=== PATIENT | female | born 1965 | race Caucasian/White ===

== ENCOUNTER 2020-08-05 07:18 | Emergency (ER) | payer OTHER, SELFPAY ==
[2020-08-05 07:30] VITALS: BP 131/73; PULSE 104; RESP 20; TEMP 37.4; O2SAT 96
[2020-08-05 07:39] LABS: Basophils Percent Auto 0.3 % (0.2-1.2); Hematocrit 41.9 % (37.0-47.0); Hemoglobin 14.3 g/dL (12.0-15.0); Immature Granulocyte Absolute 0.02 K/mm3 (0.00-0.031); Immature Granulocyte Percent A 0.3 % (0-0.5); Immature Platelet Fraction Pct 4.2 % (0.9-11.2); Lymphocytes Absolute Auto 0.84 K/mm3 (0.9-3.2); Mean Corpuscular HGB Conc 34.1 g/dl (32-36); Mean Corpuscular Hemoglobin 30.8 pg (26-34); Mean Corpuscular Volume 90.3 fl (80-100); Mean Platelet Volume 11.5 fl (7.4-10.4); Monocytes Absolute Auto 0.4 K/mm3 (0.1-0.6); Monocytes Percent Auto 6.3 % (2.6-8.5); Neutrophils Absolute Auto 5.2 K/mm3 (1.3-6.7); Neutrophils Percent Auto 80.1 % (45.5-73.1); Platelet Count Result 146 k/mm3 (150-375); Red Blood Count 4.64 M/mm3 (4.2-5.4); White Blood Count 6.5 K/mm3 (4.5-10.0)
--- NOTE | 2020-08-05 07:48 | ED.NAVMDI ---
HPI - Nausea/Vomiting/Diarrhea General Chief complaint: Nausea/Vomiting/Diarrhea Stated complaint: I Need Fluids, I have COVID Time Seen by Provider: 08/05/20 07:37 Source: patient Mode of arrival: ambulatory Limitations: no limitations History of Present Illness HPI Narrative: 54 years old white female presented to the ED with diarrhea, intermittent body aches, intermittent fever And intermittent nausea. Patient had Covid symptoms 10 days ago, positive Covid test 7 days ago. Patient denies any shortness of breath, coughing, chest pain. Patient is able to keep fluid down Related Data Home Medications Medication Instructions Recorded Confirmed alprazolam 0.5 mg tablet 0.5 mg PO BID 09/02/19 cyanocobalamin (vitamin B-12) See Rx Instructions .ROUTE .COMPLEX 09/02/19 1,000 mcg/mL injection kit estradiol 1 mg tablet 1 mg PO DAILY 09/02/19 ferrous sulfate 325 mg (65 mg 325 mg PO TID 09/02/19 iron) tablet paroxetine HCl 40 mg tablet 40 mg PO DAILY 09/02/19 tramadol 50 mg tablet 50 mg PO Q6H PRN 09/02/19 Allergies Allergy/AdvReac Type Severity Reaction Status Date / Time No Known Allergies Allergy Unverified 09/28/16 20:01 Review of Systems Review of Systems: Narrative: CONSTITUTIONAL: Denies fever, chills, or sweats. EYES: Denies visual changes, redness, or discharge. ENT: Denies rhinorrhea, congestion, sore throat, or otalgia. CARDIOVASCULAR: Denies chest pain, palpitations, or edema. RESPIRATORY: Denies cough or dyspnea. GASTROINTESTINAL: Complaining of diarrhea, denies any vomiting or nausea at this time GENITOURINARY: Denies dysuria or hematuria. SKIN: Denies rash or itching. MUSCULOSKELETAL: Denies back pain, joint pain, or myalgia. NEUROLOGIC: Denies headache, numbness, or weakness. PSYCHIATRIC: Denies anxiety or depression. [facility] Past Medical History Medical History (Updated 08/05/20 @ 09:32 by Arun Alicia MD) Dysuria Family History Family History Mother Hypertension Family history of arthritis Father Family history of cardiovascular disease, Onset Age: 64 Family history of kidney disease, Onset Age: 64 Sibling Family history of cardiovascular disease Social History Social History Smoking status: Former smoker Smoking end date: 08/27/13 Alcohol intake: never Exam Narrative: Exam Narrative: General appearance: Well-developed, well-nourished Skin: Normal color Chest and respiratory: Airway patent, no respiratory distress, no accessory muscle use Heart: Regular rate/rhythm Abdomen: Soft, nontender, no organomegaly, quiet bowel sounds Neurologic: Alert and oriented ?3, Course Course Emergency Course: Improving Vital Signs Vital signs: Vital Signs Temperature 37.4 C 08/05/20 07:30 Pulse Rate 104 H 08/05/20 07:30 Respiratory Rate 20 08/05/20 07:30 Blood Pressure 131/73 08/05/20 07:30 Pulse Oximetry 96 08/05/20 07:30 Temperature 37.4 C 08/05/20 07:30 Pulse Rate 95 08/05/20 08:52 Respiratory Rate 15 08/05/20 08:52 Blood Pressure 148/88 H 08/05/20 08:52 Pulse Oximetry 98 08/05/20 08:52 MDM - Nausea/Vomiting/Diarrhea MDM Narrative Medical decision making narrative: Covid infection syndrome. Labs, IV fluid of 2 L of normal saline, IV Zofran ordered. Further plan to follow Lab Data Result diagrams: 08/05/20 07:33 08/05/20 07:33 Labs: Lab Results 08/05/20 08/05/20 08/05/20 Range/Units 07:33 07:33 07:41 WBC 6.5 (4.5-10.0) K/mm3 RBC 4.64 (4.2-5.4) M/mm3 Hgb 14.3 (12.0-15.0) g/dL Hct
[2020-08-05 07:51] LABS: Add Urine Microscopic? YES; Appearance Urine Cloudy (Clear); Bacteria Urine Trace /hpf; Bilirubin Urine Negative (Negative); Color Urine Yellow (Yellow); Glucose Urine UA Negative (Negative); Ketones Urine 1+ mg/dL (Negative); Leukocyte Esterase Ur Trace LEU/UL (Negative); Mucus Urine Few /lpf; Nitrate Urine Negative (Negative); Protein Urine 2+ mg/dL (Negative); RBC Urine 0-2 /hpf (0-2); Specific Grav Ur 1.019 (1.001-1.035); Squamous Epithelial Cell Urine Many /hpf (Few); Urobilinogen Urine Negative mg/dL (<2.0)
[2020-08-05 07:52] LABS: Blood Urine Negative (Negative)
[2020-08-05 07:56] LABS: Alanine Aminotransferase 11 U/L (4-35); Albumin Level 3.9 g/dL (3.5-5.1); Alkaline Phosphatase 79 U/L (38-126); Anion Gap 7 mmol/L (8-16); Aspartate Amino Transferase 39 U/L (14-36); Bilirubin,Total 0.6 mg/dL (0.2-1.3); Blood Urea Nitrogen 9 mg/dL (7-17); Calcium 8.4 mg/dL (8.4-10.2); Carbon Dioxide 26 mmol/L (22-30); Chloride 103 mmol/L (98-107); Estimated CRCL calculation 91 ml/min; Estimated Glomerular Filt Rate > 60; Glucose 133 mg/dL (65-105); Lipase 77 U/L (23-300); Sodium 136 mmol/L (137-145)
[2020-08-05] MEDS: ONDANSETRON INJ 4 MG/2 ML VIAL 8 MG IV PUSH (08:06)
[2020-08-05] MEDS: SODIUM CHLORIDE 0.9% IV 1,000 ML 999 ML IV CONT ×2 (08:06→08:24)
[2020-08-05 08:52] VITALS: BP 148/88; PULSE 95; RESP 15; O2SAT 98
[2020-08-05 09:41] VITALS: BP 127/76; PULSE 100; RESP 14; O2SAT 96
== END 2020-08-05 09:43 | disposition home or self-care (01) ==
PROVIDERS: Emergency Provider Emergency Medicine; PCP Emergency Medicine
DX: U07.1 COVID-19 (principal); R19.7 Diarrhea, unspecified; Z87.891 Personal history of nicotine dependence
CPT/HCPCS: 36415; 80053; 81001; 83690; 85025; 85055; 87086; 96361; 96374; 99284; J2405; J7030

== ENCOUNTER 2021-04-30 16:47 | Emergency (ER) | payer OTHER, SELFPAY ==
--- NOTE | ~2021-04-30 | XR_ITS ---
EXAMINATION: XR foot LT min 3V DATE: 04/30/2021 17:17 INDICATION: Left foot pain. Fall. TECHNIQUE: 4 views of left foot were obtained. COMPARISON: None. FINDINGS: Bone alignment is normal. No fracture. There is mild osteoarthritis of first metatarsophala ngeal joint and some of the interphalangeal joints. There are enthesophytes at the posterior and plan tar aspects of calcaneal tuberosity. IMPRESSION: 1. Mild polyarticular osteoarthritis. Reviewed, dictated and finalized at location A.
[2021-04-30 17:03] VITALS: BP 147/99; PULSE 108; RESP 18; TEMP 36.7; O2SAT 99
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
== END 2021-04-30 17:49 | disposition home or self-care (01) ==
PROVIDERS: Emergency Provider Nurse Practitioner; PCP Emergency Medicine
DX: S99.922A Unspecified injury of left foot, initial encounter (principal); V18.4XXA Pedal cycle driver injured in noncollision transport accident in traffic accident, initial encounter; Y93.55 Activity, bike riding; Z87.891 Personal history of nicotine dependence
CPT/HCPCS: 73630; 99213; G0463

== ENCOUNTER → 2021-09-15 08:49 | Outpatient (CLI) | payer OTHER, SELFPAY ==
[2021-09-15 21:12] LABS: SARS-CoV-2 RNA PCR Positive
== END ==
PROVIDERS: PCP Emergency Medicine; Visit Provider Emergency Medicine
DX: U07.1 COVID-19 (principal)
CPT/HCPCS: C9803; U0003; U0005

== ENCOUNTER 2021-09-17 16:17 | Emergency (ER) | payer OTHER, SELFPAY ==
--- NOTE | 2021-09-17 16:25 | ED.URI ---
HPI - URI/Sore Throat General Chief Complaint: Ear Stated Complaint: Ear Pain,Congestion Time Seen by Provider: 09/17/21 16:25 Source: patient, family, RN notes reviewed and old records reviewed Mode of arrival: ambulatory Limitations: no limitations History of Present Illness HPI Narrative: 55-year-old female presents to the [facility] with ear fullness and pain since Sunday. Patient states that she called her PCM was told to a COVID test, had one on Sunday, was not told to isolate or quarantine. Denies fevers chest pain or abdominal pain. States that she had COVID in 2019 and it does not even feel close to being seen. MD elicited complaint: sinus pain Related Data Home Medications Medication Instructions Recorded Confirmed alprazolam 0.5 mg tablet 0.5 mg PO BID 09/02/19 09/17/21 cyanocobalamin (vitamin B-12) See Rx Instructions .ROUTE .COMPLEX 09/02/19 09/17/21 1,000 mcg/mL injection kit estradiol 1 mg tablet 1 mg PO DAILY 09/02/19 09/17/21 ferrous sulfate 325 mg (65 mg 325 mg PO TID 09/02/19 09/17/21 iron) tablet paroxetine HCl 40 mg tablet 40 mg PO DAILY 09/02/19 09/17/21 Allergies Allergy/AdvReac Type Severity Reaction Status Date / Time No Known Allergies Allergy Unverified 09/17/21 17:10 Review of Systems Review of Systems: All systems reviewed & are unremarkable except as noted in HPI and below Constitutional: Constitutional: Reports no additional constitutional complaints, Denies chills, Denies fever(s) and Denies headache(s) Eyes: Eyes: Reports no additional eye complaints ENT: Reports as per HPI, Denies vertigo, Denies dizziness, Denies headache(s), Denies nasal congestion and Denies sore throat Comments: Sinus congestion and bilateral ear pain and pressure Cardiovascular: Cardiovascular: Reports no additional cardiovascular complaints, Denies chest pain, Denies syncope, Denies rapid heart rate and Denies dyspnea Respiratory: Respiratory: Reports no additional respiratory complaints, Denies cough, Denies dyspnea and Denies wheezing Gastrointestinal: Gastrointestinal: Reports no additional gastrointestinal complaints, Denies abdominal pain, Denies diarrhea, Denies nausea and Denies vomiting Musculoskeletal: Musculoskeletal: Reports no additional musculoskeletal complaints and Denies numbness Integumentary/Breasts: Skin/Breast: Reports system reviewed and no additional complaints, except as docu Neurologic: Reports system reviewed and no additional complaints, except as documented, Denies vertigo, Denies dizziness, Denies syncope, Denies headache(s), Denies focal weakness and Denies numbness Psychiatric: Psychiatric: Reports no additional psychiatric complaints Allergic/Immunologic: Allergic/Immunologic: Reports no additional allergic/immunologic complaints and Denies wheezing PMFSH Past Medical History Medical History (Updated 09/17/21 @ 16:40 by Ilsa Catherine) Dysuria Family History Family History Mother Hypertension Family history of arthritis Father Family history of cardiovascular disease, Onset Age: 64 Family history of kidney disease, Onset Age: 64 Sibling Family history of cardiovascular disease Social History Social History Smoking status: Former smoker Smoking end date: 08/27/13 Alcohol intake: never Comments At the time of my signature, I reviewed and agree with the nursing past medical, surgical, social, and family history. There is no relevant family history pertinent to the patient complaint. Exam Const: General: cooperative, healthy appearing, no acute distress, well developed and alert Nutritional Appearance: well nourished Orientation/consciousness: patient oriented x3 Limitations: no limitations HENMT: Head: normal to inspection Ears: external ears normal, TM's normal bilaterally and EAC's normal General nose exam: Normal external nose present
[2021-09-17 16:27] VITALS: BP 159/107; PULSE 115; RESP 20; TEMP 37.3; O2SAT 99
== END 2021-09-17 16:44 | disposition home or self-care (01) ==
PROVIDERS: Emergency Provider Nurse Practitioner; PCP Emergency Medicine
DX: U07.1 COVID-19 (principal); Z87.891 Personal history of nicotine dependence
CPT/HCPCS: 99213; G0463

== ENCOUNTER 2021-11-29 09:32 | Emergency (ER) | payer OTHER, SELFPAY ==
[2021-11-29 09:41] VITALS: BP 140/97; PULSE 94; RESP 16; TEMP 36.3; O2SAT 98
--- NOTE | 2021-11-29 09:48 | ED.DIZZY ---
HPI - Dizziness General Chief Complaint: Dizziness Stated Complaint: dizziness Time Seen by Provider: 11/29/21 09:48 Source: patient and RN notes reviewed Mode of arrival: ambulatory Limitations: no limitations History of Present Illness HPI Narrative: 56-year-old female presents to the [facility] with dizziness yesterday morning that got better in the afternoon. Woke up this morning with increased dizziness. States that she normally takes Chandrika-D and took a week and a half off however started taking it 2 days ago. Reports it feels like her equilibrium is off. Was able to drive to the [facility]. Denies fevers, headache, blurry vision or change in vision. Denies chest pain or abdominal pain. MD elicited complaint: dizziness Related Data Home Medications Medication Instructions Recorded Confirmed alprazolam 0.5 mg tablet 0.5 mg PO BID 09/02/19 11/29/21 cyanocobalamin (vitamin B-12) See Rx Instructions .ROUTE .COMPLEX 09/02/19 11/29/21 1,000 mcg/mL injection kit estradiol 1 mg tablet 1 mg PO DAILY 09/02/19 11/29/21 ferrous sulfate 325 mg (65 mg 325 mg PO TID 09/02/19 11/29/21 iron) tablet paroxetine HCl 40 mg tablet 40 mg PO DAILY 09/02/19 11/29/21 medroxyprogesterone 2.5 mg PO DAILY 11/29/21 11/29/21 Allergies Allergy/AdvReac Type Severity Reaction Status Date / Time No Known Allergies Allergy Verified 11/29/21 10:00 Review of Systems Review of Systems: All systems reviewed & are unremarkable except as noted in HPI and below Constitutional: Constitutional: Reports no additional constitutional complaints, Denies chills and Denies fever(s) Eyes: Eyes: Reports no additional eye complaints, Denies change in vision and Denies photophobia ENT: Reports system reviewed and no additional complaints, except as documented and Denies sore throat Cardiovascular: Cardiovascular: Reports no additional cardiovascular complaints, Denies chest pain, Denies rapid heart rate and Denies slow heart rate Respiratory: Respiratory: Reports no additional respiratory complaints, Denies chest congestion, Denies cough, Denies dyspnea and Denies wheezing Gastrointestinal: Gastrointestinal: Reports no additional gastrointestinal complaints, Denies abdominal pain, Denies nausea and Denies vomiting Musculoskeletal: Musculoskeletal: Reports no additional musculoskeletal complaints and Denies back pain Integumentary/Breasts: Skin/Breast: Reports system reviewed and no additional complaints, except as docu Neurologic: Reports as per HPI, Denies confusion, Reports dizziness, Denies syncope, Denies headache(s), Denies focal weakness, Denies numbness and Denies weakness Psychiatric: Psychiatric: Reports no additional psychiatric complaints Allergic/Immunologic: Allergic/Immunologic: Reports no additional allergic/immunologic complaints PMFSH Past Medical History Medical History Anxiety and depression Dysuria Family History Family History Mother Hypertension Family history of arthritis Father Family history of cardiovascular disease, Onset Age: 64 Family history of kidney disease, Onset Age: 64 Sibling Family history of cardiovascular disease Social History Social History Smoking status: Former smoker Smoking end date: 08/27/13 Alcohol intake: never Comments At the time of my signature, I reviewed and agree with the nursing past medical, surgical, social, and family history. There is no relevant family history pertinent to the patient complaint. Exam Const: General: healthy appearing, no acute distress and alert Nutritional Appearance: well nourished and obese Orientation/consciousness: patient oriented x3 Limitations: no limitations HENMT: Head: normal to inspection Ears: external ears normal, EAC's normal, mastoids normal, no periauricul
== END 2021-11-29 10:13 | disposition home or self-care (01) ==
PROVIDERS: Emergency Provider Nurse Practitioner; PCP Emergency Medicine
DX: R42 Dizziness and giddiness (principal); Z87.891 Personal history of nicotine dependence; F41.9 Anxiety disorder, unspecified; F32.A Depression, unspecified
CPT/HCPCS: 99213; G0463

== ENCOUNTER 2022-02-03 11:24 | Emergency (ER) | payer OTHER, SELFPAY ==
[2022-02-03 11:32] VITALS: BP 139/67; PULSE 100; RESP 18; TEMP 36.2; O2SAT 99
--- NOTE | 2022-02-03 11:47 | ED.URI ---
HPI - URI/Sore Throat General Chief Complaint: Upper Respiratory Infection Stated Complaint: sore throat/cough Time Seen by Provider: 02/03/22 11:48 Source: patient Mode of arrival: ambulatory Limitations: no limitations History of Present Illness HPI Narrative: 56-year-old female presents with complaint of sinus pain, pressure, nasal congestion, postnasal drainage for 10 days. Reports over the last 4 to 5 days she has developed a cough, chest congestion. Has a history of sinus infections and bronchitis. Started using inhaler yesterday. Is taking daily allergy medication and using DayQuil NyQuil cold and sinus. She denies shortness of breath and chest pain. No fever chills. Reports blowing green drainage from nose. No concern for COVID, no COVID contacts. All systems reviewed and negative except as noted above. Related Data Home Medications Medication Instructions Recorded Confirmed alprazolam 0.5 mg tablet (Xanax) 0.5 mg PO BID 09/02/19 02/03/22 cyanocobalamin (vitamin B-12) See Rx Instructions .Route .COMPLEX 09/02/19 02/03/22 1,000 mcg/mL injection kit estradiol 1 mg tablet 1 mg PO DAILY 09/02/19 02/03/22 ferrous sulfate 325 mg (65 mg 325 mg PO TID 09/02/19 02/03/22 iron) tablet (Iron (ferrous sulfate)) paroxetine HCl 40 mg tablet (Paxil) 40 mg PO DAILY 09/02/19 02/03/22 medroxyprogesterone 2.5 mg tablet 2.5 mg PO DAILY 11/29/21 02/03/22 Allergies Allergy/AdvReac Type Severity Reaction Status Date / Time No Known Allergies Allergy Verified 02/03/22 11:38 Review of Systems Review of Systems: CONSTITUTIONAL: Denies fever, chills, or sweats. EYES: Denies visual changes, redness, or discharge. ENT: Reports rhinorrhea, congestion, sore throat, and otalgia. CARDIOVASCULAR: Denies chest pain, palpitations, or edema. RESPIRATORY: Reports cough and chest congestion. Denies dyspnea. GASTROINTESTINAL: Denies abdominal pain, nausea, vomiting, or diarrhea. GENITOURINARY: Denies dysuria or hematuria. SKIN: Denies rash or itching. MUSCULOSKELETAL: Denies back pain, joint pain, or myalgia. NEUROLOGIC: Denies headache, numbness, or weakness. PSYCHIATRIC: Denies anxiety or depression. All other systems reviewed are negative, except as documented in HPI. [facility] Past Medical History Medical History Anxiety and depression Dysuria Family History Family History Mother Hypertension Family history of arthritis Father Family history of cardiovascular disease, Onset Age: 64 Family history of kidney disease, Onset Age: 64 Sibling Family history of cardiovascular disease Social History Social History Smoking status: Former smoker Smoking end date: 08/27/13 Alcohol intake: never Comments At time of signature, agree with nursing past medical, surgical, social and family history. There is no relevant family history pertinent to the presenting complaint. Exam Narrative: GENERAL: This is a well-nourished, well-developed patient, in no apparent distress. HEAD: normocephalic, atraumatic. EYES: PERRL. Sclera clear/white. Vision is grossly intact. EARS: External ears normal, auditory canals clear and without drainage, fluid to bilateral TMs. No erythema, no perforation. NOSE: External nose normal with moderate congestion, maxillary sinus tenderness bilaterally. THROAT: Mucous membranes moist, clear postnasal drainage, no erythema to posterior pharynx. NECK: Neck supple, non-tender without lymphadenopathy, masses or thyromegaly. CARDIOVASCULAR: Regular rate and rhythm without murmurs, gallops, or rubs. RESPIRATORY: Clear to auscultation. Breath sounds equal bilaterally. No wheezes, rales, or rhonchi. SKIN: warm, Dry, intact with no suspicious lesions or rash, good texture and turgor. NEURO: awake, alert, and oriented to person, place and
== END 2022-02-03 12:09 | disposition home or self-care (01) ==
PROVIDERS: Emergency Provider Nurse Practitioner Family; PCP Emergency Medicine
DX: J01.90 Acute sinusitis, unspecified (principal); R05.9 Cough, unspecified; F41.9 Anxiety disorder, unspecified; F32.A Depression, unspecified
CPT/HCPCS: 99213; G0463

== ENCOUNTER 2022-10-30 13:15 | Emergency (ER) | payer SELFPAY ==
--- NOTE | ~2022-10-30 | XR_ITS ---
XR chest 2V DATE: 10/30/2022 14:38 INDICATION: Shortness of breath TECHNIQUE: PA and lateral views COMPARISON: None FINDINGS: Normal heart size. No hilar or mediastinal enlargement. No pulmonary infiltrate or consolid ation, pleural effusion or pulmonary vascular congestion or pneumothorax. Degenerative spurring of th e thoracic spine. IMPRESSION: No active cardiopulmonary disease Reviewed, dictated and finalized at location B. [facility]
[2022-10-30 13:28] VITALS: BP 150/82; PULSE 94; RESP 12; TEMP 37; O2SAT 96
--- NOTE | 2022-10-30 14:14 | ED.URI ---
HPI - URI/Sore Throat General Chief Complaint: Upper Respiratory Infection Stated Complaint: SOB/Chest/Cough Time Seen by Provider: 10/30/22 14:14 Source: patient, RN notes reviewed and old records reviewed Mode of arrival: ambulatory Limitations: no limitations History of Present Illness HPI Narrative: 57-year-old female presents to the [facility] with complaints of productive cough that is yellow. Chest burning at times. Denies fevers. Has a history of bronchitis, former smoker Onset (ago): day(s) (3) Related Data Home Medications Medication Instructions Recorded Confirmed alprazolam 0.5 mg tablet (Xanax) 0.5 mg PO BID 09/02/19 02/03/22 cyanocobalamin (vitamin B-12) See Rx Instructions .Route .COMPLEX 09/02/19 02/03/22 1,000 mcg/mL injection kit ferrous sulfate 325 mg (65 mg 325 mg PO TID 09/02/19 02/03/22 iron) tablet (Iron (ferrous sulfate)) paroxetine HCl 40 mg tablet (Paxil) 40 mg PO DAILY 09/02/19 02/03/22 medroxyprogesterone 2.5 mg tablet 2.5 mg PO DAILY 11/29/21 02/03/22 Daily Multivitamin 10/30/22 ascorbate calcium (vitamin C) 10/30/22 estradiol 10/30/22 Allergies Allergy/AdvReac Type Severity Reaction Status Date / Time No Known Allergies Allergy Verified 10/30/22 13:20 Review of Systems Review of Systems: All systems reviewed & are unremarkable except as noted in HPI and below Constitutional: Constitutional: Reports no additional constitutional complaints Eyes: Eyes: Reports no additional eye complaints ENT: Reports system reviewed and no additional complaints, except as documented Cardiovascular: Cardiovascular: Reports no additional cardiovascular complaints, Denies chest pain and Denies dyspnea Respiratory: Respiratory: Reports as per HPI, Reports chest congestion, Reports cough and Denies dyspnea Gastrointestinal: Gastrointestinal: Reports no additional gastrointestinal complaints, Denies abdominal pain, Denies nausea and Denies vomiting Musculoskeletal: Musculoskeletal: Reports no additional musculoskeletal complaints Integumentary/Breasts: Skin/Breast: Reports system reviewed and no additional complaints, except as docu Neurologic: Reports system reviewed and no additional complaints, except as documented Psychiatric: Psychiatric: Reports no additional psychiatric complaints Allergic/Immunologic: Allergic/Immunologic: Reports no additional allergic/immunologic complaints PMFSH Past Medical History Medical History Anxiety and depression Dysuria Family History Family History Mother Hypertension Family history of arthritis Father Family history of cardiovascular disease, Onset Age: 64 Family history of kidney disease, Onset Age: 64 Sibling Family history of cardiovascular disease Social History Social History Smoking status: Former smoker Smoking end date: 08/27/13 Alcohol intake: never Comments At the time of my signature, I reviewed and agree with the nursing past medical, surgical, social, and family history. There is no relevant family history pertinent to the patient complaint. Exam Const: General: cooperative, healthy appearing, comfortable, no acute distress, well developed, alert and well nourished Nutritional Appearance: well nourished and obese Orientation/consciousness: patient oriented x3 Limitations: no limitations HENMT: Head: normal to inspection Ears: hearing grossly normal bilaterally and external ears normal Face/Nose/Sinus: Normal external nose present, Normal nares present, Normal nasal mucous membranes and turbinates present and normal facial exam Face and sinus: normal facial exam Mouth: Yes Normal oral and palatal mucosa present, Yes lip normal and Yes moist mucous membranes Throat: posterior oropharynx normal and uvula midline Eyes: General: appear
== END 2022-10-30 15:17 | disposition home or self-care (01) ==
PROVIDERS: Emergency Provider Nurse Practitioner; PCP Emergency Medicine
DX: J40 Bronchitis, not specified as acute or chronic (principal); Z87.891 Personal history of nicotine dependence; F41.9 Anxiety disorder, unspecified; F32.A Depression, unspecified
CPT/HCPCS: 71046; 99213; G0463

== ENCOUNTER 2023-05-06 14:26 | Emergency (ER) | payer OTHER, SELFPAY ==
--- NOTE | ~2023-05-06 | XR_ITS ---
EXAMINATION: XR chest 2V Exam Date/Time: 05/06/2023 16:20 CDT HISTORY: cough short of breath x 8 days Comparison: 10/30/2022. RESULT: Lines, tubes, and devices: Surgical clips over the midline upper abdomen. Lungs and pleura: Clear. Cardiomediastinal silhouette: Stable. Other: No acute osseous or upper abdominal finding. IMPRESSION: No acute cardiopulmonary process. Reviewed, dictated and finalized at location K.
[2023-05-06 15:27] VITALS: BP 149/88; PULSE 91; RESP 16; TEMP 37.3; O2SAT 99
--- NOTE | 2023-05-06 16:14 | ED.URI ---
HPI - URI/Sore Throat General Chief Complaint: Upper Respiratory Infection Stated Complaint: Cough and Short of Breath,Ear Irritation,Lethargic Time Seen by Provider: 05/06/23 16:05 Source: patient and RN notes reviewed Mode of arrival: ambulatory Limitations: no limitations History of Present Illness HPI Narrative: Patient presents today complaining of an 8 day history of cough, headache, fatigue, shortness of breath. Denies fever. She has been taking Mucinex and using her albuterol inhaler without much relief. History of bronchitis and pneumonia. Denies history of asthma or COPD. During her last visit to [facility] she was given a course of steroids, which she did not take or finish. She has restarted these during this illness over the last few days without relief. Related Data Home Medications Medication Instructions Recorded Confirmed alprazolam 0.5 mg tablet (Xanax) 0.5 mg PO BID 09/02/19 05/06/23 paroxetine HCl 40 mg tablet (Paxil) 40 mg PO DAILY 09/02/19 05/06/23 medroxyprogesterone 2.5 mg tablet 2.5 mg PO DAILY 11/29/21 05/06/23 estradiol 1 mg tablet 1 mg PO DAILY 05/06/23 05/06/23 Allergies Allergy/AdvReac Type Severity Reaction Status Date / Time No Known Allergies Allergy Verified 05/06/23 15:41 Review of Systems Review of Systems: CONSTITUTIONAL: Denies body aches, fever, chills, or sweats.+ fatigue EYES: Denies visual changes, redness, or discharge. ENT: Denies rhinorrhea, congestion, sore throat, or otalgia. CARDIOVASCULAR: Denies chest pain, palpitations, or edema. RESPIRATORY: Cough, shortness of breath GASTROINTESTINAL: Denies abdominal pain, nausea, vomiting. + diarrhea GENITOURINARY: Denies dysuria or hematuria. SKIN: Denies rash, itching, or wounds. MUSCULOSKELETAL: Denies back pain, joint pain, or myalgia. NEUROLOGIC: Denies numbness, tingling, or weakness.+ headache PSYCH: Denies depression or anxiety. [facility] Past Medical History Medical History Anxiety and depression Dysuria Family History Family History Mother Hypertension Family history of arthritis Father Family history of cardiovascular disease, Onset Age: 64 Family history of kidney disease, Onset Age: 64 Sibling Family history of cardiovascular disease Social History Social History Smoking status: Former smoker Smoking end date: 08/27/13 Alcohol intake: never Comments At time of signature, I have reviewed and agree with nursing past medical, surgical, social and family history unless otherwise noted. Please see nursing chart for further information. There is no relevant family history pertinent to the presenting complaint Exam Narrative: GENERAL: Well-appearing, well-nourished, and in no acute distress. HEAD: Normocephalic, atraumatic. EYES: EOMI. No redness or drainage. Conjunctivae normal. ENT: Mucous membranes pink and moist. Nares clear. No rhinorrhea. TMs normal bilaterally. Throat normal. Uvula midline. NECK: Normal AROM. Supple. No lymphadenopathy. CHEST: No respiratory distress. Slight coarseness at the end of the expiration in all for lung zones. HEART: Regular rate and rhythm. No murmur appreciated. Normal peripheral pulses. EXTREMITIES: Normal range of motion. No edema. SKIN: Warm, dry, no rash. Capillary refill normal. Normal skin turgor. NEURO: No focal deficits. Alert and oriented x3. Gait steady. PSYCH: Normal affect. No signs of depression or anxiety. Course Course Level of Care: Express Care Visit Vital Signs Vital signs: Vital Signs Temperature 99.2 F 05/06/23 15:27 Pulse Rate 91 05/06/23 15:27 Respiratory Rate 16 05/06/23 15:27 Blood Pressure 149/88 H 05/06/23 15:27 Pulse Oximetry 99 05/06/23 15:27 Oxygen Delivery Room Air 05/06/23 15:27 Te
== END 2023-05-06 17:18 | disposition home or self-care (01) ==
PROVIDERS: Emergency Provider Nurse Practitioner; PCP Emergency Medicine
DX: J40 Bronchitis, not specified as acute or chronic (principal); F41.9 Anxiety disorder, unspecified; F32.A Depression, unspecified; Z79.899 Other long term (current) drug therapy; Z87.891 Personal history of nicotine dependence
CPT/HCPCS: 71046; 99213; G0463

== ENCOUNTER 2023-08-05 12:23 | Emergency (ER) | payer OTHER, SELFPAY ==
[2023-08-05 12:32] VITALS: BP 140/97; PULSE 103; RESP 16; TEMP 36.6; O2SAT 100
[2023-08-05 12:34] VITALS: BP 140/97; PULSE 103; RESP 16; TEMP 36.6; O2SAT 100
--- NOTE | 2023-08-05 13:49 | ED.GENADULT ---
HPI - General Adult General Chief complaint: Upper Respiratory Infection Stated complaint: Cough Source: patient Mode of arrival: ambulatory Limitations: no limitations History of Present Illness HPI narrative: Patient presents for evaluation of respiratory symptoms for last 8 days. She has experience a cough and some mild shortness of breath. No fever, nausea, vomiting, diarrhea, sore throat or otalgia. She has had similar symptoms in the past with bronchitis. Several individuals with whom she lives have had similar symptoms. She states in the past she had insomnia with certain steroids but more recently took another steroid that seemed to help but without significant side effects. She has used flonase and albuterol for her symptoms. Related Data Home Medications Medication Instructions Recorded Confirmed alprazolam 0.5 mg tablet (Xanax) 0.5 mg PO BID 09/02/19 08/05/23 paroxetine HCl 40 mg tablet (Paxil) 40 mg PO DAILY 09/02/19 08/05/23 medroxyprogesterone 2.5 mg tablet 2.5 mg PO DAILY 11/29/21 08/05/23 estradiol 1 mg tablet 1 mg PO DAILY 05/06/23 08/05/23 Allergies Allergy/AdvReac Type Severity Reaction Status Date / Time No Known Allergies Allergy Verified 08/05/23 12:33 Review of Systems Review of Systems: CONSTITUTIONAL: Denies fever, chills, or sweats. EYES: Denies visual changes, redness, or discharge. ENT: Denies rhinorrhea, congestion, sore throat, or otalgia. CARDIOVASCULAR: Denies chest pain, palpitations, or edema. RESPIRATORY: Reports cough and SOB GASTROINTESTINAL: Denies abdominal pain, nausea, vomiting, or diarrhea. GENITOURINARY: Denies dysuria or hematuria. SKIN: Denies rash or itching. MUSCULOSKELETAL: Denies back pain, joint pain, or myalgia. NEUROLOGIC: Denies headache, numbness, dizziness, or weakness. PSYCHIATRIC: Denies anxiety or depression. [facility] Past Medical History Medical History (Updated 08/05/23 @ 13:53 by Abraham Loving, INGE, FELIPE) Anxiety and depression Anxiety and depression Dysuria Surgical History Surgical History No pertinent past surgical history Family History Family History Mother Hypertension Family history of arthritis Father Family history of cardiovascular disease, Onset Age: 64 Family history of kidney disease, Onset Age: 64 Sibling Family history of cardiovascular disease Social History Social History Smoking status: Former smoker Smoking end date: 08/27/13 Alcohol intake: never Lack of Transportation: No Lack of Food: Never True Exam Narrative: GENERAL: Well-appearing, well-nourished, and in no acute distress. HEAD: Normocephalic, atraumatic. EYES: PERRLA and EOMI. ENT: Nares clear, no rhinorrhea or epistaxis. Mucous membranes moist. Oropharynx without tonsillar hypertrophy exudate or other lesions. Bilateral TMs pearly randolph nonbulging NECK: Supple. No adenopathy or masses. No carotid bruits or JVD CHEST: Clear to auscultation. No respiratory distress. No wheezes rales or rhonchi HEART: Regular rate and rhythm. No murmur heard. Normal peripheral pulses. ABDOMEN: Soft, nontender, nondistended, normal active bowel sounds. EXTREMITIES: Normal range of motion. No edema. SKIN: Warm, dry, no rash. NEURO: No focal deficits. Alert and oriented x3. PSYCH: Normal mood and affect. Course Course Emergency Course: This is a 57-year-old female who presented for evaluation of respiratory symptoms that are consistent with those experienced in the past with bronchitis. She declined COVID/flu testing and CXR. She does not adventitious lung sounds. It appears most recently she took dexamethasone with improvement in her symptoms thereafter. Will discharge with a prescription for that. Increase hydration. OTC agents for symptom rubén
== END 2023-08-05 13:55 | disposition home or self-care (01) ==
PROVIDERS: Emergency Provider Nurse Practitioner; PCP Emergency Medicine
DX: J40 Bronchitis, not specified as acute or chronic (principal); Z87.891 Personal history of nicotine dependence; F41.9 Anxiety disorder, unspecified; F32.A Depression, unspecified
CPT/HCPCS: 99213; G0463

== ENCOUNTER 2023-09-16 12:25 | Emergency (ER) | payer OTHER, SELFPAY ==
--- NOTE | 2023-09-16 13:09 | ED.GENADULT ---
HPI - General Adult General Chief complaint: Upper Respiratory Infection Stated complaint: Sinus Source: patient Mode of arrival: ambulatory Limitations: no limitations History of Present Illness HPI narrative: Patient presents for evaluation of sick symptoms for last 2 weeks. She reports sinus congestion, green discharge from the nares, productive cough of brown sputum, throat irritation from coughing. No recent sick contacts to her knowledge. She has been taking theraflu for her symptoms. She had improvement in her symptoms with recurrence thereafter. She has used steroids in the past with successful reduction in her symptoms. She does not smoke. Related Data Home Medications Medication Instructions Recorded Confirmed alprazolam 0.5 mg tablet (Xanax) 0.5 mg PO BID 09/02/19 09/16/23 paroxetine HCl 40 mg tablet (Paxil) 40 mg PO DAILY 09/02/19 09/16/23 medroxyprogesterone 2.5 mg tablet 2.5 mg PO DAILY 11/29/21 09/16/23 estradiol 1 mg tablet 1 mg PO DAILY 05/06/23 09/16/23 Allergies Allergy/AdvReac Type Severity Reaction Status Date / Time No Known Allergies Allergy Verified 09/16/23 13:11 Review of Systems Review of Systems: CONSTITUTIONAL: Denies fever, chills, or sweats. EYES: Denies visual changes, redness, or discharge. ENT: Reports sinus congestion thick green drainage from the nares. Reports sore throat. CARDIOVASCULAR: Denies chest pain, palpitations, or edema. RESPIRATORY: Reports productive cough of brown sputum. GASTROINTESTINAL: Reports recent loose stools, none in the past few days. Denies abdominal pain, nausea, or vomiting. GENITOURINARY: Denies dysuria or hematuria. SKIN: Denies rash or itching. MUSCULOSKELETAL: Denies back pain, joint pain, or myalgia. NEUROLOGIC: Denies headache, numbness, dizziness, or weakness. PSYCHIATRIC: Denies anxiety or depression. [facility] Past Medical History Medical History Anxiety and depression Anxiety and depression Asthma exacerbation Dysuria Surgical History Surgical History No pertinent past surgical history Family History Family History Mother Hypertension Family history of arthritis Father Family history of cardiovascular disease, Onset Age: 64 Family history of kidney disease, Onset Age: 64 Sibling Family history of cardiovascular disease Social History Social History Smoking end date: 08/27/13 Alcohol intake: never Lack of Transportation: No Lack of Food: Never True Gender identity (if verbalized by the patient): Female Spiritual care concerns: No Exam Narrative: GENERAL: Well-appearing, well-nourished, and in no acute distress. HEAD: Normocephalic, atraumatic. EYES: PERRLA and EOMI. ENT: Nares clear, no rhinorrhea or epistaxis. Mucous membranes moist. Bilateral maxillary sinus tenderness. Oropharynx without tonsillar hypertrophy exudate or other lesions. Bilateral TMs slightly erythematous. NECK: Supple. No adenopathy or masses. No carotid bruits or JVD CHEST: Clear to auscultation. No respiratory distress. No wheezes rales or rhonchi HEART: Regular rate and rhythm. No murmur heard. Normal peripheral pulses. ABDOMEN: Soft, nontender, nondistended, normal active bowel sounds. EXTREMITIES: Normal range of motion. No edema. SKIN: Warm, dry, no rash. NEURO: No focal deficits. Alert and oriented x3. PSYCH: Normal mood and affect. Course Course Emergency Course: This is a 57-year-old female who presented for evaluation of sick symptoms. She declined flu and COVID testing. She also declined CXR. I think this is reasonable as she has no adventitious lung sounds. Historically she has responded well to dexamethasone so will provide her with a prescription
[2023-09-16 13:39] VITALS: BP 156/102; PULSE 88; RESP 20; TEMP 36.9; O2SAT 99
[2023-09-16 14:38] VITALS: BP 152/94
== END 2023-09-16 14:38 | disposition home or self-care (01) ==
PROVIDERS: Emergency Provider Nurse Practitioner; PCP Emergency Medicine
DX: J01.00 Acute maxillary sinusitis, unspecified (principal); Z87.891 Personal history of nicotine dependence; J45.909 Unspecified asthma, uncomplicated; F41.9 Anxiety disorder, unspecified; F32.A Depression, unspecified
CPT/HCPCS: 99213; G0463

== ENCOUNTER 2025-01-30 13:02 | Emergency (ER) | payer OTHER, SELFPAY ==
--- NOTE | ~2025-01-30 | XR_ITS ---
EXAMINATION: XR chest 2V 01/30/2025 14:13 INDICATION: Cough and shortness of breath PROCEDURE: 2 view chest COMPARISON: 05/06/2023 FINDINGS: The lungs are clear. The cardiomediastinal silhouette is within normal limits. There are no pleural effusions. There is no pneumothorax suspected. IMPRESSION: 1: NO ACUTE CARDIOPULMONARY DISEASE. Reviewed, dictated and finalized at location A.
[2025-01-30 13:10] VITALS: BP 153/77; PULSE 98; RESP 16; TEMP 36.9; O2SAT 97
--- NOTE | 2025-01-30 13:58 | ED.URI ---
HPI - URI/Sore Throat General Chief Complaint: Upper Respiratory Infection Stated Complaint: Sinus Time Seen by Provider: 01/30/25 13:58 Source: patient, RN notes reviewed and old records reviewed Mode of arrival: ambulatory Limitations: no limitations History of Present Illness HPI Narrative: 59-year-old female presents to the [facility] with over 1 week of cough, started as a sore throat, sinus congestion, rhinorrhea. Denies chest pain, shortness of breath. Denies fevers. Did take some cold medicine the yesterday. Has not used her inhaler. Onset (ago): week(s) (1+) Treatments prior to arrival: cold medicine Related Data Home Medications ?Medication ?Instructions ?Recorded ?Confirmed ?Last Taken ?Type alprazolam 0.5 mg tablet (Xanax) 0.5 mg PO BID 09/02/19 11/03/24 Unknown History paroxetine HCl 40 mg tablet (Paxil) 40 mg PO DAILY 09/02/19 11/03/24 Unknown History estradiol 1 mg tablet 1 mg PO DAILY 05/06/23 11/03/24 Unknown History Allergies Allergy/AdvReac Type Severity Reaction Status Date / Time No Known Allergies Allergy Verified 01/30/25 13:24 Review of Systems Review of Systems: All systems reviewed & are unremarkable except as noted in HPI and below Constitutional: Constitutional: Reports no additional constitutional complaints ENT: Reports as per HPI, Reports nasal congestion, Reports sinus pain and Reports sore throat Cardiovascular: Cardiovascular: Reports no additional cardiovascular complaints, Denies chest pain and Denies dyspnea Respiratory: Respiratory: Reports as per HPI, Denies chest congestion, Reports cough and Denies dyspnea Musculoskeletal: Musculoskeletal: Reports no additional musculoskeletal complaints Integumentary/Breasts: Skin/Breast: Reports system reviewed and no additional complaints, except as docu PMFSH Past Medical History Medical History Pain in both knees History of anemia COVID-19 virus infection Urinary frequency Symptoms of urinary tract infection S/p nephrectomy Pyelonephritis Pain of right heel Nausea Mixed hyperlipidemia Elevated lipids Dysthymic disorder Colonoscopy refused Carpal tunnel syndrome of right wrist B12 deficiency Anxiety Acute pain of left knee Acute cystitis without hematuria History of endometrial biopsy (06/10/17) GERD (gastroesophageal reflux disease) Endometriosis Kidney donor donated to father Asthma exacerbation Anxiety and depression Anxiety and depression Dysuria Surgical History Surgical History History of colposcopy (11/13/19) History of carpal tunnel release (04/30/18) History of colposcopy (~2017) History of colposcopy (~2018) Benign History of endometrial ablation (09/04/14) History of laparoscopy (~1990) Laparoscopy abdomen diagnostic / Endometriosis H/O tubal ligation (~1988) No pertinent past surgical history Family History Family History Mother Hypertension Family history of arthritis Father Family history of cardiovascular disease, Onset Age: 64 Family history of kidney disease, Onset Age: 64 Sibling Family history of cardiovascular disease Social History Social History Smoking status: Never smoker Smoking end date: 08/27/13 Alcohol intake: never Substance use: never Substance use type: does not use Do You Feel Safe in your Home?: Yes Lack of Transportation: No Lack of Food: Never True Current Housing: Decline to Answer Concerned About Future Housing: Decline to Answer Difficulty Paying Gas/Electric Bills: Decline to Answer Difficulty Paying for Meds: Decline to Answer Currently Unemployed: Decline to Answer Education: Decline to Answer Difficulty w/ Childcare or Family Care: Decline to Answer Living arrangements: other Additional living arrangements comments: estranged Occupation/Education: occupation Additional occupation/education comments: [employer] Gender identity (if verbalized by the patient): Female Sexual Orientation (if Verbalized by the Patient): Straight or Heterosexual Spiritual care concerns: No Comments At the time of my signature, I reviewed and agree with the nursing past medical, surgical, social, and family history. There is no relevant family history pertinent to the patient complaint. Exam Const: General: cooperative, healthy appearing, comfortable, no acute distress, well developed, alert and well nourished Nutritional Appearance: well nourished Orientation/consciousness: patient oriented x3 Limitations: no limitations HENMT: Head: normal to inspection Ears: hearing grossly normal bilaterally, external ears normal, TM's normal bilaterally, EAC's normal, mastoids normal and no periauricular adenopathy Face/Nose/Sinus: Normal external nose present, Nasal discharge present clear bilateral and sinus tenderness Mouth: Yes Normal oral and palatal mucosa present, Yes lip normal, Yes tongue normal and Yes moist mucous membranes Throat: posterior oropharynx normal, uvula midline, postnasal drainage and no uvular edema Eyes: General: appearance normal, both eyes and all related structures Alignment and Position: alignment normal Neck: Neck: normal visual inspection, full ROM, no lymphadenopathy and no meningeal signs Chest: Chest palpation & inspection: normal inspection of the chest Resp: Effort & Inspection: normal respiratory effort and able to speak in complete sentences Auscultation: no crackles, no rales, no rhonchi and wheezes expiratory wheezes and throughout Cardio: Rate: regular rate Skin: General skin exam: normal color and no rashes or lesions noted Neuro: General: patient oriented x3, gait normal, moves all extremities and no meningeal signs Cognition (Neuro): normal cognition Speech: normal speech Gait exam (Neuro): Normal gait present Extrem: General: normal to inspection, full ROM, capillary refill normal and normal gait Psych: Appearance: grossly normal and well kempt Mental Status: mental status grossly normal Speech and movement: Normal speech and movement present and Clear speech present Affect: normal affect Attitude: cooperative Course Course Level of Care: Express Care Visit Vital Signs Vital signs: Vital Signs Temperature 98.5 F 01/30/25 13:10 Pulse Rate 98 01/30/25 13:10 Respiratory Rate 16 01/30/25 13:10 Blood Pressure 153/77 H 01/30/25 13:10 Pulse Oximetry 97 01/30/25 13:10 Oxygen Delivery Room Air 01/30/25 13:10 Temperature 98.5 F 01/30/25 13:10 Pulse Rate 98 01/30/25 13:10 Respiratory Rate 16 01/30/25 13:10 Blood Pressure 153/77 H 01/30/25 13:10 Pulse Oximetry 97 01/30/25 13:10 Oxygen Delivery Room Air 01/30/25 13:10 Reviewed MDM - URI/Sore Throat MDM Narrative Medical decision making narrative: Patient sitting in exam room. Patient is nontoxic, cough for over a week. Patient is wheezing. Neb treatment done in clinic, x-ray is negative. Patient post neb treatment feeling better. Wheezing was cleared. Patient appropriate for outpatient treatment and follow-up Discharge instructions reviewed with patient, as well as provided in writing per nursing staff. The instructions also include specific and strict return/GO TO THE ER as well as f/u information. All questions have been answered, and the patient deny any further questions with discharge and discharge plan. Some parts of this dictation were generated by voice recognition software and may contain typographical and/or grammatical inaccuracies. Differential Diagnosis Differential diagnosis: Likely upper respiratory infection, otitis media, sinusitis, viral infection, bronchitis, influenza and pharyngitis Imaging Data Radiologist's impression: EXAMINATION: XR chest 2V 01/30/2025 14:13 INDICATION: Cough and shortness of breath PROCEDURE: 2 view chest COMPARISON: 05/06/2023 FINDINGS: The lungs are clear. The cardiomediastinal silhouette is within normal limits. There are no pleural effusions. There is no pneumothorax suspected. IMPRESSION: 1: NO ACUTE CARDIOPULMONARY DISEASE. Critical Care Time Critical Care Time Critical Care Time: No Discharge Plan Discharge Clinical Impression: Bronchitis, Sinusitis Patient Disposition: Home Condition: Stable Instructions: Antibiotic Form, Sinusitis (ED), Acute Bronchitis (ED) Additional Instructions: It is very important to treat your symptoms. Drink plenty of water, Gatorade, Pedialyte, ice pops or Jell-O. -Alternate Tylenol and Motrin per package directions for fever or pain. You can alternate every 4 hours -Antihistamine medication such as Zyrtec/Claritin/Chandrika during the day can help improve symptoms. -doing daily nasal irrigations can help relieve pressure your sinuses. Things like a Neti pot -Use Flonase twice a day for 5 days then daily to help reduce the inflammation and dry up your sinuses. -You can also use Mucinex. Be sure to drink plenty of water with this medication at least 8 ounces with every dose and it is important to drink 8 to 10 glasses of water per day. Water is a natural decongestant -Eat and drink things that are easy to swallow, like tea or soup, or popsicles. -Oral rinses such as: Salt water gargles and/or may use topical anesthetic (eg. Chloraseptic spray) or lozenges to relieve dryness or throat pain). -Frequent hand washing or hand tire shop manager is one of the best ways to prevent spread of infection. -Using a vaporizer or humidifier at night will also help thin secretions and help with coughing up phlegm. -Follow up with primary care provider in 7-10 days if condition is not improving - For new or worsening symptoms go directly to the nearest ER Patient Language: Stateless Prescriptions: New doxycycline monohydrate 100 mg tablet 100 mg PO BID Qty: 20 0RF albuterol sulfate 90 mcg/actuation HFA aerosol inhaler 2 puff inhalation QID PRN (Reason: shortness of breath or wheezing) Qty: 6.7 0RF (DME) Aerochamber MV Spacer See Rx Instructions .Route Qty: 1 0RF Rx Instructions: As directed dexamethasone 2 mg tablet 2 mg PO DAILY Qty: 5 0RF No Action estradiol 1 mg tablet 1 mg PO DAILY albuterol sulfate [ProAir HFA] 90 mcg/actuation HFA aerosol inhaler 2 puff INHALATION Q4-6H PRN (Reason: shortness of breath or wheezing) Qty: 18 0RF paroxetine HCl [Paxil] 40 mg tablet 40 mg PO DAILY alprazolam [Xanax] 0.5 mg tablet 0.5 mg PO BID progesterone micronized [Prometrium] 200 mg capsule 200 mg PO QHS 90 Days Qty: 90 3RF Follow-up/Referrals: Deshaun Painter MD [Primary Care Provider] - 2 Weeks ([facility] follow-up) Stand Alone Forms: Work/School Release IP Time of Disposition: 14:37
[2025-01-30] MEDS: IPRATROPIUM BR 0.02% INH SOLN 0.5 MG/2.5 ML VIAL INHALATION (14:12)
[2025-01-30] MEDS: ALBUTEROL SULFATE NEB 2.5 MG/3 ML INH INHALATION (14:12)
== END 2025-01-30 14:48 | disposition home or self-care (01) ==
PROVIDERS: Emergency Provider Nurse Practitioner; PCP Emergency Medicine
DX: J40 Bronchitis, not specified as acute or chronic (principal); J32.9 Chronic sinusitis, unspecified; Z87.891 Personal history of nicotine dependence; E78.2 Mixed hyperlipidemia; K21.9 Gastro-esophageal reflux disease without esophagitis; N80.9 Endometriosis, unspecified; J45.909 Unspecified asthma, uncomplicated; Z86.16 Personal history of COVID-19; F41.9 Anxiety disorder, unspecified; F32.A Depression, unspecified
CPT/HCPCS: 71046; 94640; 99213; G0463

== ENCOUNTER 2025-08-01 17:07 | Emergency (ER) | payer OTHER, SELFPAY ==
--- NOTE | 2025-08-01 17:08 | ED.URI ---
HPI - URI/Sore Throat General Chief Complaint: Upper Respiratory Infection Stated Complaint: Sinus Time Seen by Provider: 08/01/25 17:07 Source: patient Mode of arrival: ambulatory Limitations: no limitations History of Present Illness HPI Narrative: Cheryl is a 59-year-old female patient presenting to the clinic today with complaints of sinus congestion and cough for over 1 week. She reports sinus pressure, headache, and yellow nasal drainage. No fever or chills. Denies any chest pain or sob. Has taken Zyrtec D and nasal spray without relief. MD elicited complaint: sore throat and nasal congestion Related Data Home Medications ?Medication ?Instructions ?Recorded ?Confirmed ?Last Taken ?Type alprazolam 0.5 mg tablet (Xanax) 0.5 mg PO BID 09/02/19 11/03/24 Unknown History paroxetine HCl 40 mg tablet (Paxil) 40 mg PO DAILY 09/02/19 11/03/24 Unknown History cholecalciferol (vitamin D3) 125 10,000 unit PO DAILY 08/01/25 Unknown History mcg (5,000 unit) tablet (Vitamin D3) multivitamin (One Daily 1 tablet PO DAILY 08/01/25 Unknown History Multivitamin tablet) Allergies Allergy/AdvReac Type Severity Reaction Status Date / Time No Known Allergies Allergy Verified 08/01/25 17:08 Review of Systems Review of Systems: Pertinent positives per HPI. Patient denies any fever, chills, rash, visual changes, dizziness, shortness of breath, chest pain, palpitations, nausea, vomiting, diarrhea, constipation, abdominal pain, or any urinary issues. PMFSH Past Medical History Medical History Pain in both knees History of anemia COVID-19 virus infection Urinary frequency Symptoms of urinary tract infection S/p nephrectomy Pyelonephritis Pain of right heel Nausea Mixed hyperlipidemia Elevated lipids Dysthymic disorder Colonoscopy refused Carpal tunnel syndrome of right wrist B12 deficiency Anxiety Acute pain of left knee Acute cystitis without hematuria GERD (gastroesophageal reflux disease) Endometriosis Kidney donor donated to father Asthma exacerbation Anxiety and depression Anxiety and depression Dysuria Surgical History Surgical History History of endometrial biopsy (06/10/17) History of colposcopy (11/13/19) History of carpal tunnel release (04/30/18) History of colposcopy (~2017) History of colposcopy (~2018) Benign History of endometrial ablation (09/04/14) History of laparoscopy (~1990) Laparoscopy abdomen diagnostic / Endometriosis H/O tubal ligation (~1988) No pertinent past surgical history Family History Family History Mother Hypertension Family history of arthritis Father Family history of cardiovascular disease, Onset Age: 64 Family history of kidney disease, Onset Age: 64 Sibling Family history of cardiovascular disease Social History Social History Smoking status: Never smoker Smoking end date: 08/27/13 Alcohol intake: never Substance use: never Substance use type: does not use Lack of Transportation: No Lack of Food: Never True Current Housing: Decline to Answer Concerned About Future Housing: Decline to Answer Difficulty Paying Gas/Electric Bills: Decline to Answer Difficulty Paying for Meds: Decline to Answer Currently Unemployed: Decline to Answer Education: Decline to Answer Difficulty w/ Childcare or Family Care: Decline to Answer Living arrangements: other Additional living arrangements comments: estranged Occupation/Education: occupation Additional occupation/education comments: [employer] Gender identity (if verbalized by the patient): Female Sexual Orientation (if Verbalized by the Patient): Straight or Heterosexual Spiritual care concerns: No Comments At the time of my signature, I reviewed and agree with the nursing past medical, surgical, social, and family history. There is no relevant family history pertinent to the patient complaint. Exam Narrative: General: Well-developed, obese, in no apparent distress Head: Normocephalic, atraumatic Eyes: Pupils equally round and reactive to light bilaterally, EOM intact, sclera and conjunctive clear, no discharge, lids normal Ears: TMs intact and congested, ear canals clear, no drainage, grossly hearing normal. Nose: Nares patent, yellow nasal discharge, severe inflammation, maxillary and frontal sinus tenderness. Mouth: Oral pharynx red without lesions or masses, good dentition, MMM. Postnasal drip Neck: Supple, trachea midline, no enlargement of anterior or posterior cervical nodes, no thyroid masses or goiter palpable. Cardio: Regular rate and rhythm, s1 and s2 normal, no murmur appreciated. Resp: Clear to auscultation bilaterally, no rhonchi, rales, wheezing or rubs Course Course Level of Care: Express Care Visit Vital Signs Vital signs: Vital Signs Temperature 36.6 C 08/01/25 17:14 Pulse Rate 100 08/01/25 17:14 Respiratory Rate 18 08/01/25 17:14 Blood Pressure 139/88 08/01/25 17:14 Pulse Oximetry 100 08/01/25 17:14 Oxygen Delivery Room Air 08/01/25 17:14 Temperature 36.6 C 08/01/25 17:14 Pulse Rate 100 08/01/25 17:14 Respiratory Rate 18 08/01/25 17:14 Blood Pressure 139/88 08/01/25 17:14 Pulse Oximetry 100 08/01/25 17:14 Oxygen Delivery Room Air 08/01/25 17:14 MDM MDM Narrative Medical decision making narrative: At the time of visit patient is resting comfortably on the exam table. Patient appears to be nontoxic. Complaints of sinus congestion and cough for over 1 week. She reports sinus pressure, headache, and yellow nasal drainage. No fever or chills. Denies any chest pain or sob. Has taken Zyrtec D and nasal spray without relief. On exam patient has bilateral TMs intact and congested, yellow nasal drainage with severe anterior turbinate inflammation, maxillary and frontal sinuses tender, oropharynx with postnasal drip, heart rate regular rate and rhythm, lung sounds are clear. Plan: I suspect patient has acute bacterial rhinosinusitis. Prescription for Augmentin and dexamethasone was sent to the pharmacy. Supportive measures were discussed with the patient and they voiced understanding discharge instructions and agrees to treatment plan. Return precautions reviewed Differential Diagnosis Differential Diagnosis: Differential diagnostic considerations for upper respiratory infection include upper respiratory infection, croup, otitis media, sinusitis, viral infection, bronchitis, influenza, pharyngitis, strep, uvulitis. Discharge Plan Discharge Clinical Impression: Acute bacterial rhinosinusitis Patient Disposition: Home Condition: Stable Instructions: Antibiotic Form, Rhinosinusitis (ED) Additional Instructions: Take prescription medications only as prescribed-Augmentin and dexamethasone Increase fluids and stay well hydrated May take Tylenol or motrin as directed on bottle for pain/fever May use Flonase 1 spray in each nare daily May take OTC antihistamines such as Zyrtec or Claritin daily as directed on bottle May apply Vicks vapor rub to chest to open sinuses Sinus rinses for congestion Cepacol spray, cough drops, throat lozenges, warm tea with honey/lemon, gargle salt water to soothe throat BRAT diet for diarrhea Clear liquids x 24 hours then advance as tolerated for nausea/vomiting Go to the ED if you develop a worsening in your condition- high fever not controlled by Tylenol or Motrin, dehydration, weakness, lethargy, shortness of breath, or chest pain. Follow up with your PCP in 3-5 days if symptoms persist. Patient Language: Venezuelan Prescriptions: New amoxicillin-pot clavulanate 875-125 mg tablet 1 tablet PO Q12H 10 Days Qty: 20 0RF dexamethasone 2 mg tablet 2 mg PO DAILY 5 Days Qty: 5 0RF No Action (DME) Aerochamber MV Spacer See Rx Instructions .Route Qty: 1 0RF Rx Instructions: As directed cholecalciferol (vitamin D3) [Vitamin D3] 125 mcg (5,000 unit) tablet 10,000 unit PO DAILY multivitamin [One Daily Multivitamin] Tablet 1 tablet PO DAILY paroxetine HCl [Paxil] 40 mg tablet 40 mg PO DAILY alprazolam [Xanax] 0.5 mg tablet 0.5 mg PO BID Follow-up/Referrals: Deshaun Painter MD [Primary Care Provider, Internal Medicine] Time of Disposition: 17:21 Quality NIHSS Nursing Documentation ED NIHSS nursing documentation: reviewed/agree
[2025-08-01 17:14] VITALS: BP 139/88; PULSE 100; RESP 18; TEMP 36.6; O2SAT 100
== END 2025-08-01 17:32 | disposition home or self-care (01) ==
PROVIDERS: Emergency Provider Nurse Practitioner Family; PCP Emergency Medicine
DX: J01.90 Acute sinusitis, unspecified (principal); E78.2 Mixed hyperlipidemia; K21.9 Gastro-esophageal reflux disease without esophagitis; N80.9 Endometriosis, unspecified; J45.909 Unspecified asthma, uncomplicated; E55.9 Vitamin D deficiency, unspecified; F41.9 Anxiety disorder, unspecified; F32.A Depression, unspecified; Z87.891 Personal history of nicotine dependence
CPT/HCPCS: 99213; G0463